=== PATIENT | female | born 1980 ===

== ENCOUNTER 2017-07-24 17:23 | Emergency (ER) | payer OTHER ==
[2017-07-24 17:31] VITALS: BP 103/63
--- NOTE | 2017-07-24 17:46 | UC ---
Throat Pain/Nasal Benji HPI - HPI Summary HPI Summary: 2 days of severe sore throat and bilateral ear pain. Voice a little hoarse, has a little bit of cough but no shortness of breath or fever. Past tonsillectomy. Usually in great health. No known infectious contacts. - History of Current Complaint Chief Complaint: UCRespiratory Stated Complaint: SORE THROAT Time Seen by Provider: 07/24/17 17:35 Hx Obtained From: Patient, Family/Manager Critical Care Unit - here with her Hx Last Menstrual Period: 2 wks ago ?: No Onset/Duration: Gradual Onset, Lasting Days - 2 Severity: Moderate Pain Intensity: 8 Pain Scale Used: 0-10 Numeric Cough: Nonproductive Associated Signs & Symptoms: Positive: Dysphagia, Hoarseness - Epiglottits Risk Factors Epiglottis Risk Factors: Negative - Allergies/Home Medications Allergies/Adverse Reactions: Allergies Allergy/AdvReac Type Severity Reaction Status Date / Time No Known Allergies Allergy Verified 07/24/17 17:32 Home Medications: Home Medications NK [No Home Medications Reported] 07/24/17 [History Confirmed 07/24/17] PMH/Surg Hx/FS Hx/Imm Hx Previously Healthy: Yes - Surgical History Surgical History: Yes Surgery Procedure, Year, and Place: Tonsils. [place]. - Family History Known Family History: Positive: Cardiac Disease - father and paternal side-- coronary artery disease. - Social History Occupation: Employed Full-time - SAHM Alcohol Use: Occasionally Substance Use Type: None Smoking Status (MU): Never Smoked Tobacco Review of Systems Constitutional: Fatigue Skin: Negative Eyes: Negative ENT: Sore Throat, Ear Ache Respiratory: Cough - minimal Cardiovascular: Negative Gastrointestinal: Negative Genitourinary: Negative Motor: Negative Neurovascular: Negative Musculoskeletal: Negative Neurological: Negative Psychological: Negative Is Patient Immunocompromised?: No All Other Systems Reviewed And Are Negative: Yes Physical Exam Triage Information Reviewed: Yes Appearance: Ill-Appearing - looks mildly unwell, fatigued. Vital Signs: Initial Vital Signs Temp 98.4 F 07/24/17 17:29 Pulse 72 07/24/17 17:29 Resp 18 07/24/17 17:29 BP 103/63 07/24/17 17:29 Pulse Ox 100 07/24/17 17:29 Eyes: Positive: Conjunctiva Clear ENT: Positive: Pharyngeal erythema, TMs normal Neck: Positive: Supple, Nontender, No Lymphadenopathy Respiratory: Positive: Lungs clear, Normal breath sounds Cardiovascular: Positive: RRR, No Murmur Abdomen Description: Positive: Nontender, No Organomegaly, Soft Musculoskeletal Exam: Normal Neurological Exam: Normal Psychological Exam: Normal Skin Exam: Normal Diagnostics - Laboratory Diagnostic Studies Completed/Ordered: rapid strep negative. Throat Pain/Nasal Course/Dx - Course Course Of Treatment: symptomatic treatment of pharyngitis. - Differential Dx/Diagnosis Differential Diagnosis/HQI/PQRI: Laryngitis, Pharyngitis, URI Provider Diagnoses: acute viral pharyngitis Discharge - Discharge Plan Condition: Stable Disposition: HOME Patient Education Materials: Pharyngitis (ED) Referrals: Odin Mendez MD [Primary Care Provider] - Additional Instructions: Use ibuprofen as needed for control of pain, taking 600mg 2 or 3 times per day with food. Stop if it causes nausea or stomach upset. Warm water and salt gargling and warm drinks with honey can help to ease pain.
[2017-07-24] MEDS ORDERED: Ibuprofen TAB* 600 MG PO ONE (17:49)
== END 2017-07-24 18:19 | disposition home or self-care (01) ==
LOC: UCEAST 17:23
DX: J02.8 Acute pharyngitis due to other specified organisms (principal)
CPT/HCPCS: 87651; 99212; A9270-GY; G0463